=== PATIENT | female | born 1965 | race Caucasian/White ===

== ENCOUNTER → 2016-11-03 | Outpatient (CLI) | payer OTHER ==
[2016-11-03 13:05] LABS: BASO % 0.5 %; BASO ABS # 0.02 K/uL (0-0.2); COMPLETE YES; EOS % 2.4 %; HEMATOCRIT 39.8 % (37-47); LYMPH % 34.6 %; LYMPH ABS # 1.47 K/uL (1.2-3.4); MEAN CELL VOLUME 86.7 fL (80-100); MEAN CORPUSCULAR HEMOGLOBIN 30.3 pg (25-34); MEAN CORPUSCULAR HGB CONC 34.9 g/dl (32-36); MONO % 6.6 %; NEUT % 55.9 %; PLATELET COUNT 240 K/uL (130-400); RED BLOOD COUNT 4.59 M/uL (4.2-5.4); WHITE BLOOD COUNT 4.25 K/uL (4.8-10.8)
[2016-11-03 13:39] LABS: ALT/SGPT 41 U/L (12-78); BLOOD UREA NITROGEN 19 mg/dl (7-18); BUN/CREATININE RATIO 19.3 (10-20); CALCIUM 8.9 mg/dl (8.5-10.1); CARBON DIOXIDE 29 mmol/L (21-32); CHLORIDE 101 mmol/L (98-107); CREATININE 0.99 mg/dl (0.60-1.20); GLUCOSE 74 mg/dl (70-99); POTASSIUM 3.5 mmol/L (3.5-5.1); SODIUM 138 mmol/L (136-145)
[2016-11-03 13:44] LABS: ESTIMATED AVERAGE GLUCOSE 100 mg/dl; HA1C FLAG Normal (Normal)
[2016-11-03 13:49] LABS: ALKALINE PHOSPHATASE 111 U/L (45-117); AST/SGOT 28 U/L (15-37); FERRITIN 21.4 ng/ml (8.0-388.0)
[2016-11-06 18:33] LABS: T3 REVERSE **TC 90963 12 ng/dL (8-25)
== END | disposition home or self-care (01) ==
LOC: C.LAB1850 12:15
PROVIDERS: ATTEND Chiropractor
DX: M79.1 Myalgia (principal)

== ENCOUNTER → 2017-10-19 | Outpatient (CLI) | payer OTHER ==
--- NOTE | 2017-10-19 12:07 | DIAGNOSTIC IMAGING REPORT ---
BRAIN WITHOUT CONTRAST HISTORY: 51 years-old Female R20.0 [id number] acute left arm and left facial numbness COMPARISON: None available TECHNIQUE: Multiplanar multisequence MRI of the brain was obtained without contrast FINDINGS: No restricted diffusion to suggest acute infarction. The midline structures including the corpus callosum, brainstem, optic chiasm, infundibulum, pituitary and pineal glands appear unremarkable in the sagittal T1 series. There is no cerebellar tonsillar herniation. Imaged cervical spine appears unremarkable. There is no acute intracranial hemorrhage, midline shift, intracranial mass, abnormal extra-axial collections or hydrocephalus. 3 mm focus of T2/FLAIR prolongation within the subcortical right frontal lobe, image 8 series 7 is indeterminate and likely of no clinical significance. Signal of the brain parenchyma is otherwise within normal limits. The major flow voids at the level of the skull base appear patent. Mastoid air cells are clear. Mild leftward bowing and spurring of the nasal septum. Minimal mucoperiosteal thickening of the right maxillary and bilateral ethmoid sinuses. Scalp, calvarium and soft tissues are unremarkable. Thin section axial FIESTA images demonstrate no cerebellar pontine angle mass. Seventh and 8 cranial nerves and bilateral internal auditory canals are within normal limits bilaterally. IMPRESSION: No acute intracranial abnormality. No acute infarction. The above report was generated using voice recognition software. It may contain grammatical, syntax or spelling errors. Electronically signed by: Hayden Peña M.D. 10/19/2017 12:06 PM Dictated Date/Time: 10/19/2017 12:00 PM
[2017-10-21 13:34] LABS: VITAMIN B6** TC 926 7.1 ng/mL (2.1-21.7)
== END | disposition home or self-care (01) ==
LOC: C.MRI 11:07
PROVIDERS: ATTEND Psychiatry & Neurology Neurology
DX: R20.0 Anesthesia of skin (principal)